=== PATIENT | female | born 1985 | race Hispanic/Latino ===

== ENCOUNTER → 2023-06-29 09:15 | Outpatient (REF) | payer OTHER, SELFPAY ==
[2023-06-29 10:20] LABS: HDL Cholesterol 52 mg/dl; LDL Cholesterol, Calculated 126 mg/dl; Total Cholesterol 213 mg/dl (50-199); Triglyceride 178 mg/dl (10-149); Very Low Density Lipoprotein 35 mg/dl (0-30)
[2023-06-29 10:36] LABS: Vitamin D, 25-OH*** 15.9 ng/mL (30-80)
[2023-06-29 12:14] LABS: Glycohemoglobin (HgbA1c) 5.7 % (4.0-5.6)
== END ==
LOC: REG 09:15
PROVIDERS: ATTENDING PHYSICIAN Nurse Practitioner Adult Health
DX: R73.03 Prediabetes (principal); E55.9 Vitamin D deficiency, unspecified
CPT/HCPCS: 36415; 80061; 82306; 83036